=== PATIENT | male | born 1970 | race Caucasian/White ===

== ENCOUNTER 2023-07-03 10:35 | Outpatient (CLI) | payer OTHER ==
--- NOTE | 2023-07-03 13:23 | CT Report ---
PROCEDURE: Sinus INDICATIONS: SINUSITIS TECHNIQUE: Noncontrast 3.0 mm axial images acquired from the frontal sinuses to the mid-sella, with coronal and sagittal reformats. For radiation dose reduction, the following was used: automated exposure control , adjustment of mA and/or kV according to patient size. COMPARISON: None. FINDINGS: Image quality: Excellent. Maxillary Sinuses: No bony remodeling or destruction. Sinuses are clear. Ethmoid Air Cells: No bony remodeling or destruction. Sinuses are clear. Sphenoid Sinuses: No bony remodeling or destruction. Sinuses are clear. Frontal Sinuses: No bony remodeling or destruction. Sinuses are clear. Ostiomeatal Complexes: A tiny amount of soft tissue occludes the left ostiomeatal complex. However, it appears grossly patent other than this tiny of tissue. The right ostiomeatal complex is patent. No Eliza cells. Miscellaneous: Visualized intra-orbital contents are normal. Nasal septal deviation to the right me asuring 4.5 mm results in narrowing of the right nasal passage. There is an associated rightward smal l osteophytic bar which is well seen on image 33/10, the coronal reformats, at which point the right nasal passage narrowing is at its most severe. Small left middle nasal turbinate isabela bullosa. IMPRESSION: 1. Nasal septal deviation with an associated small osteophytic bar results in narrowing of the right nasal passage, focally severe. 2. No acute or chronic sinusitis noted. Reviewed by: Bipin Manuel MD on 07/03/2023 1:22 PM PDT Approved by: Bipin Manuel MD on 07/03/2023 1:22 PM PDT Station ID: [id number]
== END 2023-07-03 10:36 | disposition home or self-care (01) ==
LOC: DI 10:35
PROVIDERS: ATTEND Family Medicine
DX: J32.9 Chronic sinusitis, unspecified (principal); J34.2 Deviated nasal septum